=== PATIENT | female | born 1960 | race Caucasian/White ===

== ENCOUNTER 2018-07-13 21:05 | Emergency (ER) | payer BC ==
[2018-07-13] MEDS ORDERED: diphenhydrAMINE 50 MG Cap PO ONE (22:07)
[2018-07-13] MEDS ORDERED: methylPREDNISolone Sodium Succinate 125 MG/2 ML SDV IM ONE (22:07)
--- NOTE | 2018-07-13 22:08 | EDM.PDOC ---
ED HPI GENERAL MEDICAL PROBLEM - General Chief Complaint: Allergic Reaction Stated Complaint: PT HAS ALLERGIC REACTION Time Seen by Provider: 07/13/18 22:01 - History of Present Illness INITIAL COMMENTS - FREE TEXT/NARRATIVE: HISTORY AND PHYSICAL: History of present illness: The patient is a 58-year-old female who has a provider back in [place] but has relocated here and has not connected with a provider and has a history of hypertension and presents with 4 hours of having her lips feel tingly and over the last hour or so her lower lip started to swell. She has no tongue swelling or difficulty swallowing but says that she feels a little puffy in her neck and a tingly in her throat that started this morning. She has no chest pain or shortness of breath no coughing vomiting or diarrhea. The patient has used lisinopril for many years and has never had issues. Her to coming here such as [id number] Benadryl Claritin or Natalie. Review of systems: As per history of present illness and below otherwise all systems reviewed and negative. Past medical history: As per history of present illness and as reviewed below otherwise noncontributory. Surgical history: As per history of present illness and as reviewed below otherwise noncontributory. Social history: No reported history of drug or alcohol abuse. Family history: As per history of present illness and as reviewed below otherwise noncontributory. Physical exam: General: Well-developed well-nourished female who is nontoxic and vital signs are noted by me. Her elevated blood pressure has been discussed with the patient please see below. She is speaking clearly and easily without hoarse or muffled voice and not breathless HEENT: Atraumatic, normocephalic, pupils reactive, negative for conjunctival pallor or scleral icterus, mucous membranes moist, throat clear, neck supple, nontender, trachea midline. Some slight swelling of her lower lip that her tongue and oropharynx are within normal limits as is her uvula soft palate and posterior oropharynx. The upper lip is within normal limits and her face is not swollen or puffy. Lungs: Clear to auscultation, breath sounds equal bilaterally, chest nontender. No wheezing stridor or work of breathing Heart: S1S2, regular rate and rhythm no overt murmurs Abdomen: Soft, nondistended, nontender. NABS Pelvis: Deferred Genitourinary: Deferred. Rectal: Deferred. Extremities: Atraumatic, negative for cords or calf pain. Neurovascular unremarkable. Neuro: Awake, alert, oriented. Cranial nerves II through XII unremarkable. Cerebellum unremarkable. Motor and sensory unremarkable throughout. Exam nonfocal. Skin: The patient has an overall flushed appearance which she said is not new or different for her but she has no skin rashes lesions or urticaria Diagnostics: [] Therapeutics: Benadryl Solu-Medrol I discussed the patient's elevated blood pressure with the patient and she says that when she comes into the ER she does feel more distressed and she also feels stressed about what is going on with her. She does not want me to address that and wants to just take her regular medications and follow-up in the clinic. Impression: Mild angioedema secondary to lisinopril Definitive disposition and diagnosis as appropriate pending reevaluation and review of above. - Related Data Allergies Allergy/AdvReac Type Severity Reaction Status Date / Time latex Allergy Hives Verified 07/13/18 22:08 phenylpropanolamine Allergy Other Verified 07/13/18 22:08 ED ROS ALLERGIC REACTION - Review of Systems Review Of Systems: ROS reveals no pertinent complaints other than HPI. ED EXAM GENERAL NO PERIP PULSE - Physical Exam Exam: See Below (See dictation) Course - Vital Signs Last Recorded V/S: Last Vital Signs Temp 36.8 C 07/13/18 21:58 Pulse 59 L 07/13/18 21:58 Resp BP 225/111 H 07/13/18 21:58 Pulse Ox 98 07/13/18 21:58 - Orders/Labs/Meds Meds: Medications Discontinued Medications Generic Name Dose Route Start Last Admin Trade Name Freq PRN Reason Stop Dose Admin Diphenhydramine HCl 50 mg 07/13/18 22:07 Benadryl PO 07/13/18 22:08 ONETIME ONE Methylprednisolone Sodium Succinate 125 mg 07/13/18 22:07 Solu-Medrol IM 07/13/18 22:08 ONETIME ONE Departure - Departure Time of Disposition: 22:12 Disposition: Home, Self-Care 01 Condition: Good Clinical Impression: Angioedema due to angiotensin converting enzyme inhibitor (IVORY-I) Hypertension Qualifiers: Hypertension type: unspecified secondary hypertension Qualified Code(s): I15.9 - Secondary hypertension, unspecified; I15 - Secondary hypertension - Discharge Information Referrals: PCP,None [Primary Care Provider] - Additional Instructions: The following information is given to patients seen in the emergency department who are being discharged to home. This information is to outline your options for follow-up care. We provide all patients seen in our emergency department with a follow-up referral. The need for follow-up, as well as the timing and circumstances, are variable depending upon the specifics of your emergency department visit. If you don't have a primary care physician on staff, we will provide you with a referral. We always advise you to contact your personal physician following an emergency department visit to inform them of the circumstance of the visit and for follow-up with them and/or the need for any referrals to a consulting specialist. The emergency department will also refer you to a specialist when appropriate. This referral assures that you have the opportunity for followup care with a specialist. All of these measure are taken in an effort to provide you with optimal care, which includes your followup. Under all circumstances we always encourage you to contact your private physician who remains a resource for coordinating your care. When calling for followup care, please make the office aware that this follow-up is from your recent emergency room visit. If for any reason you are refused follow-up, please contact the emergency department at and ask to speak to the emergency department charge nurse. [facility] Primary care- Internal Medicine and Family [address] [id number] Please contact our clinic in the morning and schedule a follow-up appointment for tonight events as well as adjustment of your medications and a replacement for the lisinopril that we have stopped tonight. Do not take the lisinopril anymore. Take [id number] Benadryl 50 mg every 6 hours for the next 24 hours and then as needed. Fill the prescription for the Medrol Dosepak you can given and stressed that tomorrow. Try to avoid extra salt and sodium rich products in her diet to help with your blood pressure. Return to ER as needed and as discussed
== END 2018-07-13 22:37 | disposition home or self-care (01) ==
LOC: MW.ED 21:05
DX: T78.3XXA Angioneurotic edema, initial encounter (principal); T46.4X5A Adverse effect of angiotensin-converting-enzyme inhibitors, initial encounter; I15.9 Secondary hypertension, unspecified; Z91.040 Latex allergy status; Z88.8 Allergy status to other drugs, medicaments and biological substances
CPT/HCPCS: 96372; 99283; A9270; J2930

== ENCOUNTER 2018-09-25 12:09 | Inpatient (IN) | payer BC ==
[2018-09-25] MEDS ORDERED: Ondansetron 4 MG/2 ML SDV IVPUSH PRN (12:34)
[2018-09-25] MEDS ORDERED: Promethazine 25 MG/ML SDV IM PRN (12:34)
[2018-09-25] MEDS ORDERED: Sodium Chloride 0.9% 1,000 ML IV ONE ×2 (12:40→13:59)
--- NOTE | 2018-09-25 13:59 | PCM.HP ---
H&P History of Present Illness - General Date of Service: 09/25/18 Admit Problem/Dx: Admission Diagnosis/Problem Admission Diagnosis/Problem Acute kidney injury - History of Present Illness Initial Comments - Free Text/Narative: 68 yo female who presents with one week history of diarrhea. She reports poor apatite and occasional nausea and vomiting. At [facility] she has been receiving IV fluids with lab monitoring for her diarrhea illness. She denies any fever or abdominal pain. Three days ago her Creatinine was noted to be 1. Today it was 4. - Related Data Allergies/Adverse Reactions: Allergies Allergy/AdvReac Type Severity Reaction Status Date / Time latex Allergy Hives Verified 07/13/18 22:08 phenylpropanolamine Allergy Other Verified 07/13/18 22:08 Home Medications: Home Meds Aspirin [Adult Aspirin] 81 mg PO DAILY 07/13/18 [History] Fenofibrate 160 mg PO DAILY 07/13/18 [History] Metoprolol Tartrate [Lopressor] 150 mg PO BID 07/13/18 [History] hydroCHLOROthiazide [Hydrochlorothiazide] 50 mg PO DAILY 07/13/18 [History] Cholecalciferol (Vitamin D3) [Vitamin D3] 2,000 unit PO DAILY 09/25/18 [History] Ciprofloxacin HCl [Cipro] 500 mg PO BID 09/25/18 [History] Potassium Chloride 20 meq PO BID 09/25/18 [History] amLODIPine Bes/Olmesartan Med [Amlodipine-Olmesartan 10-40 mg] 1 tab PO DAILY [History] Past Medical History Cardiovascular History: Reports: Hypertension Genitourinary History: Reports: Acute Renal Failure 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 Exam - Exam Exam: See Below - Vital Signs Vital Signs: Last Vital Signs Temp 36.6 C 09/25/18 12:10 Pulse 73 09/25/18 12:10 Resp 18 09/25/18 12:10 BP 109/71 09/25/18 12:10 Pulse Ox 96 09/25/18 12:10 Weight: 93.213 kg - Exam General: Alert, Oriented HEENT: Other (dry [place]) Neck: Supple Lungs: Clear to Auscultation, Normal Respiratory Effort Cardiovascular: Regular Rate, Regular Rhythm GI/Abdominal Exam: Soft, Non-Tender Extremities: Non-Tender, No Pedal Edema Skin: Warm, Dry, Intact Neurological: Cranial Nerves Intact - Patient Data Lab Results Last 24 hrs: Laboratory Results - last 24 hr 09/25/18 09/25/18 Range/Units 12:46 12:46 WBC 10.07 (4.0-11.0) K/uL RBC 5.20 (4.30-5.90) M/uL Hgb 15.9 (12.0-16.0) g/dL Hct 44.2 (36.0-46.0) % MCV 85.0 (80.0-98.0) fL MCH 30.6 (27.0-32.0) pg MCHC 36.0 (31.0-37.0) g/dL RDW Std Deviation 39.7 (28.0-62.0) fl RDW Coeff of John Paul 13 (11.0-15.0) % Plt Count 304 (150-400) K/uL MPV 12.00 (7.40-12.00) fL Neut % (Auto) 71.6 (48.0-80.0) % Lymph % (Auto) 19.5 (16.0-40.0) % [place] % (Auto) 8.3 (0.0-15.0) % Eos % (Auto) 0.5 (0.0-7.0) % Baso % (Auto) 0.1 (0.0-1.5) % Neut # (Auto) 7.2 H (1.4-5.7) K/uL Lymph # (Auto) 2.0 (0.6-2.4) K/uL Miller # (Auto) 0.8 (0.0-0.8) K/uL Eos # (Auto) 0.1 (0.0-0.7) K/uL Baso # (Auto) 0.0 (0.0-0.1) K/uL Nucleated RBC % 0.0 /100WBC Nucleated RBCs # 0 K/uL Sodium 139 (136-145) mmol/L Potassium 3.0 L (3.5-5.1) mmol/L Chloride 105 (98-107) mmol/L Carbon Dioxide 13.3 L (21.0-32.0) mmol/L BUN 70 H (7.0-18.0) mg/dL Creatinine 5.1 H (0.6-1.0) mg/dL Est Cr Clr Drug Dosing 9.63 mL/min Estimated GFR (MDRD) 8.7 ml/min Glucose 127 H (74-106) mg/dL Calcium 9.7 (8.5-10.1) mg/dL Total Bilirubin 0.6 (0.2-1.0) mg/dL AST 22 (15-37) IU/L ALT 67 H (14-63) IU/L Alkaline Phosphatase 60 (46-116) U/L Total Protein 8.3 H (6.4-8.2) g/dL Albumin 4.9 (3.4-5.0) g/dL Globulin 3.4 (2.6-4.0) g/dL Albumin/Globulin Ratio 1.4 (0.9-1.6) Result Diagrams: 09/25/18 12:46 09/25/18 12:46 Problem List Initiated/Reviewed/Updated: Yes Orders Last 24hrs: Active Orders 24 hr Category Date Time Status Patient Status [ADT] Routine ADT 09/25/18 12:34 Active Antiembolic Devices [RC] PER UNIT ROUTINE Care 09/25/18 12:36 Active Oxygen Therapy [RC] PRN Care 09/25/18 12:34 Active Up ad Elma [RC] ASDIRECTED Care 09/25/18 12:34 Active VTE/DVT Education [RC] PER UNIT ROUTINE Care 09/25/18 12:34 Active Vital Signs [RC] Q4H Care 09/25/18 12:34 Active Regular Diet [DIET] Diet 09/25/18 Breakfast Active Retroperitoneal Ltd [US] Routine Exams 09/25/18 12:39 Ordered CULTURE STOOL + CAMPY+SHIGATOX [RM] Routine Lab 09/25/18 12:38 Ordered CULTURE URINE [RM] Stat Lab 09/25/18 12:34 Ordered Clostridium Difficile [CDIFF TOX A+B] [OP] Routine Lab 09/25/18 12:38 Ordered UA W/MICROSCOPIC [URIN] Routine Lab 09/25/18 12:34 Ordered Ondansetron [Zofran] Med 09/25/18 12:34 Active 4 mg IVPUSH Q4H PRN Pantoprazole [ProTONIX IV] Med 09/25/18 21:00 Ordered 40 mg IV Q12HR Promethazine [Phenergan] Med 09/25/18 12:34 Active 25 mg IM Q6H PRN Sodium Chloride 0.9% [Normal Saline] 1,000 ml Med 09/25/18 12:45 Active IV ASDIRECTED Isolation [COMM] Stat Oth 09/25/18 12:38 Ordered Sequential Compression Device [OM.PC] Per Unit Routine Oth 09/25/18 12:35 Ordered Resuscitation Status Routine Resus Stat 09/25/18 12:34 Ordered Medication Orders Sodium Chloride (Normal Saline) 1,000 mls @ 150 mls/hr IV ASDIRECTED [place] Ondansetron HCl (Zofran) 4 mg IVPUSH Q4H PRN PRN Reason: Nausea Pantoprazole Sodium (Protonix Iv) 40 mg IV Q12HR [facility] Promethazine HCl (Phenergan) 25 mg IM Q6H PRN PRN Reason: Nausea Assessment/Plan Comment:: 58 yo female admitted for acute kidney failure due to dehydration and diarrhea illness. We will treat with IV fluids and send stool for studies. We will further evaluate with CT of the abdomen and pelvis.
[2018-09-25] MEDS: Sodium Chloride 0.9% 1,000 ML IV SCH ×2 (16:12→22:49)
[2018-09-25] MEDS: Pantoprazole 40 MG Vial IV SCH (22:10)
[2018-09-26] MEDS: Sodium Chloride 0.9% 1,000 ML IV SCH ×3 (05:35→18:18)
[2018-09-26] MEDS: Pantoprazole 40 MG in Sodium Chloride 0.9% 10 ML IV SCH ×2 (11:15→22:29)
--- NOTE | 2018-09-26 14:11 | PCM.PN ---
- General Info Date of Service: 09/26/18 - Review of Systems Systems Review Comment:: feeling better, diarrhea improving - Patient Data Vitals - Most Recent: Last Vital Signs Temp 37.3 C 09/26/18 12:00 Pulse 71 09/26/18 12:00 Resp 20 09/26/18 12:00 BP 121/60 09/26/18 12:00 Pulse Ox 99 09/26/18 12:00 Weight - Most Recent: 93.213 kg I&O - Last 24 Hours: Intake & Output 09/25/18 09/26/18 09/26/18 22:59 06:59 14:59 Intake Total 2200 1770 1010 Output Total 600 850 Balance 5965 735 2901 Lab Results Last 24 Hours: Laboratory Results - last 24 hr 09/25/18 09/26/18 09/26/18 Range/Units 18:40 05:59 05:59 WBC 5.16 (4.0-11.0) K/uL RBC 4.25 L (4.30-5.90) M/uL Hgb 12.5 (12.0-16.0) g/dL Hct 36.4 (36.0-46.0) % MCV 85.6 (80.0-98.0) fL MCH 29.4 (27.0-32.0) pg MCHC 34.3 (31.0-37.0) g/dL RDW Std Deviation 40.6 (28.0-62.0) fl RDW Coeff of John Paul 13 (11.0-15.0) % Plt Count 214 (150-400) K/uL MPV 11.90 (7.40-12.00) fL Neut % (Auto) 55.1 (48.0-80.0) % Lymph % (Auto) 34.1 (16.0-40.0) % [place] % (Auto) 8.7 (0.0-15.0) % Eos % (Auto) 1.7 (0.0-7.0) % Baso % (Auto) 0.4 (0.0-1.5) % Neut # (Auto) 2.8 (1.4-5.7) K/uL Lymph # (Auto) 1.8 (0.6-2.4) K/uL [place] # (Auto) 0.5 (0.0-0.8) K/uL Eos # (Auto) 0.1 (0.0-0.7) K/uL Baso # (Auto) 0.0 (0.0-0.1) K/uL Nucleated RBC % 0.0 /100WBC Nucleated RBCs # 0 K/uL Sodium 145 (136-145) mmol/L Potassium 3.0 L (3.5-5.1) mmol/L Chloride 114 H (98-107) mmol/L Carbon Dioxide 15.3 L (21.0-32.0) mmol/L BUN 66 H (7.0-18.0) mg/dL Creatinine 3.4 H (0.6-1.0) mg/dL Est Cr Clr Drug Dosing 14.44 mL/min Estimated GFR (MDRD) 13.9 ml/min Glucose 103 (74-106) mg/dL Calcium 8.6 (8.5-10.1) mg/dL Urine Color DARK YELLOW Urine Appearance SLT CLOUDY Urine pH 5.0 (5.0-8.0) Ur Specific Munger >= 1.030 (1.001-1.035) Urine Protein NEGATIVE (NEGATIVE) mg/dL Urine Glucose (UA) NEGATIVE (NEGATIVE) mg/dL Urine Ketones NEGATIVE (NEGATIVE) mg/dL Urine Occult Blood NEGATIVE (NEGATIVE) Urine Nitrite NEGATIVE (NEGATIVE) Urine Bilirubin NEGATIVE (NEGATIVE) Urine Urobilinogen 0.2 (<2.0) EU/dL Ur Leukocyte Esterase NEGATIVE (NEGATIVE) Urine RBC 0-2 (0-2/HPF) Urine WBC 2-4 (0-5/HPF) Ur Epithelial Cells MODERATE (NONE-FEW) Calcium Oxalate Crystal FEW (NEGATIVE) Urine Bacteria FEW (NEGATIVE) Quirino Results Last 24 Hours: Microbiology 09/25/18 14:32 Campylobacter Antigen Assay - Final Stool / Feces NEGATIVE CAMPYLOBACTER AG Shiga Toxin I - Final Shiga Toxin II - Final No Growth 09/25/18 14:32 Clostridium difficile Toxin A & B - Final Stool / Feces Negative for C.Diff Toxin/AG Med Orders - Current: Current Medications Sodium Chloride (Normal Saline) 1,000 mls @ 150 mls/hr IV ASDIRECTED [place] Last Admin: 09/26/18 11:43 Dose: 150 mls/hr Pantoprazole Sodium 40 mg/ (Sodium Chloride) 10 mls @ 200 mls/hr IV Q12H [facility] Last Admin: 09/26/18 11:15 Dose: 200 mls/hr Ondansetron HCl (Zofran) 4 mg IVPUSH Q4H PRN PRN Reason: Nausea Promethazine HCl (Phenergan) 25 mg IM Q6H PRN PRN Reason: Nausea Discontinued Medications Sodium Chloride (Normal Saline) 1,000 mls @ 999 mls/hr IV .Bolus ONE Stop: 09/25/18 13:40 Last Admin: 09/25/18 13:53 Dose: 999 mls/hr Sodium Chloride (Normal Saline) 1,000 mls @ 999 mls/hr IV .Bolus ONE Stop: 09/25/18 14:59 Last Admin: 09/25/18 14:44 Dose: 999 mls/hr Pantoprazole Sodium (Protonix Iv) 40 mg IV Q12HR [facility] Last Admin: 09/25/18 22:10 Dose: 40 mg - Exam General: Alert, Oriented Neck: Supple Lungs: Clear to Auscultation, Normal Respiratory Effort Cardiovascular: Regular Rate, Regular Rhythm Extremities: Non-Tender, No Pedal Edema Skin: Warm, Dry, Intact Neurological: No New Focal Deficit - Problem List Review Problem List Initiated/Reviewed/Updated: Yes - My Orders Last 24 Hours: My Active Orders 09/25/18 13:56 Abdomen Pelvis wo Cont [CT] Routine 09/25/18 14:32 CULTURE STOOL + CAMPY+SHIGATOX [RM] Routine 09/25/18 18:40 CULTURE URINE [] Stat 09/26/18 11:00 Pantoprazole [ProTONIX IV] 40 mg Sodium Chloride 0.9% [Normal Saline] 10 ml IV Q12H 09/27/18 05:11 BASIC METABOLIC PANEL,BMP [CHEM] AM CBC WITH AUTO DIFF [HEME] AM - Plan Plan:: 58 yo female admitted for acute kidney failure due to dehydration and diarrhea illness. Creatinine has improved to 3.4 We will continue IV fluids. Stool studies have been negative so far. CT scan report is still pending.
[2018-09-26] MEDS: Pantoprazole 40 MG Vial IV SCH (14:41)
--- NOTE | 2018-09-26 17:44 | CT ---
INDICATION: Diarrhea. Acute renal failure. TECHNIQUE: CT of the abdomen and pelvis performed without IV or oral contrast. FINDINGS: Moderate osteopenia. Mild to moderate vascular calcifications. Moderate fatty infiltration of the liver with focal fatty sparing. Mild nodular benign thickening of both adrenal glands. Benign small calcified density in the pelvic mesentery. Mildly prominent portacaval lymph node can normally be mildly prominent and is likely not significant. Contents of the colon are air and fluid without formed stool which is consistent with the patient`s known diarrhea. No wall thickening involving the colon to suggest colitis. Findings could be related to gastroenteritis. Fat containing 3.3 cm lower anterior abdominal wall hernia extending to the periumbilical region. Reactive lymph nodes in the abdominal mesentery. Remainder negative. IMPRESSION: 1. Contents of the colon are fluid and air without formed stool. Findings consistent with the patient`s known diarrhea. No CT evidence for colitis. Findings could be related to gastroenteritis. 2. Not mentioned above are changes of cholecystectomy with mild biliary prominence especially common bile duct. 3. Fat containing ventral abdominal wall hernia extending to the periumbilical region measures 3.3 cm. Other findings as above. Please note that all CT scans at this facility use dose modulation, iterative reconstruction, and/or weight-based dosing when appropriate to reduce radiation dose to as low as reasonably achievable. Dictated by Jamal Grant MD @ Sep 26 2018 4:03PM (Electronically Signed)
[2018-09-27] MEDS: Sodium Chloride 0.9% 1,000 ML IV SCH (07:59)
[2018-09-27] MEDS ORDERED: Sodium Chloride 0.9% with KCl 1,000 ML IV SCH (09:15)
[2018-09-27] MEDS ORDERED: Potassium Chloride 20 MEQ Tab.ER PO ONE (09:40)
--- NOTE | 2018-09-27 11:18 | PCM.PN ---
- General Info Date of Service: 09/27/18 - Review of Systems Systems Review Comment:: diarrhea is improving - Patient Data Vitals - Most Recent: Last Vital Signs Temp 37.3 C 09/27/18 08:00 Pulse 72 09/27/18 08:00 Resp 19 09/27/18 08:00 BP 132/80 09/27/18 08:00 Pulse Ox 98 09/27/18 08:00 Weight - Most Recent: 93.213 kg I&O - Last 24 Hours: Intake & Output 09/26/18 09/27/18 09/27/18 22:59 06:59 14:59 Intake Total 1170 400 480 Output Total 1200 1200 Balance -30 -800 480 Lab Results Last 24 Hours: Laboratory Results - last 24 hr 09/27/18 09/27/18 09/27/18 Range/Units 06:14 06:14 06:57 WBC 5.16 (4.0-11.0) K/uL RBC 4.01 L (4.30-5.90) M/uL Hgb 12.1 (12.0-16.0) g/dL Hct 33.9 L (36.0-46.0) % MCV 84.5 (80.0-98.0) fL MCH 30.2 (27.0-32.0) pg MCHC 35.7 (31.0-37.0) g/dL RDW Std Deviation 40.1 (28.0-62.0) fl RDW Coeff of John Paul 13 (11.0-15.0) % Plt Count 208 (150-400) K/uL MPV 11.50 (7.40-12.00) fL Neut % (Auto) 56.0 (48.0-80.0) % Lymph % (Auto) 36.4 (16.0-40.0) % [place] % (Auto) 5.8 (0.0-15.0) % Eos % (Auto) 1.6 (0.0-7.0) % Baso % (Auto) 0.2 (0.0-1.5) % Neut # (Auto) 2.9 (1.4-5.7) K/uL Lymph # (Auto) 1.9 (0.6-2.4) K/uL [place] # (Auto) 0.3 (0.0-0.8) K/uL Eos # (Auto) 0.1 (0.0-0.7) K/uL Baso # (Auto) 0.0 (0.0-0.1) K/uL Nucleated RBC % 0.0 /100WBC Nucleated RBCs # 0 K/uL Sodium 147 H (136-145) mmol/L Potassium 2.8 L (3.5-5.1) mmol/L Chloride 117 H (98-107) mmol/L Carbon Dioxide 15.7 L (21.0-32.0) mmol/L BUN 46 H (7.0-18.0) mg/dL Creatinine 1.7 H (0.6-1.0) mg/dL Est Cr Clr Drug Dosing 28.88 mL/min Estimated GFR (MDRD) 31.0 ml/min Glucose 103 (74-106) mg/dL Calcium 8.5 (8.5-10.1) mg/dL Magnesium 1.8 (1.8-2.4) mg/dL Quirino Results Last 24 Hours: Microbiology 09/25/18 14:32 Stool Culture - Final Stool / Feces NO SALMONELLA, SHIGELLA,OR E.COLI O157 ISOLATED Campylobacter Antigen Assay - Final NEGATIVE CAMPYLOBACTER AG Shiga Toxin I - Final Shiga Toxin II - Final No Growth 09/25/18 18:40 Urine Culture - Final Urine, Bladder No Growth Med Orders - Current: Current Medications Pantoprazole Sodium 40 mg/ (Sodium Chloride) 10 mls @ 200 mls/hr IV Q12H [facility] Last Admin: 09/26/18 22:29 Dose: 200 mls/hr Potassium Chloride/Sodium Chloride (Normal Saline With 40 Meq Kcl) 1,000 mls @ 150 mls/hr IV ASDIRECTED [facility] Stop: 09/27/18 15:54 Last Admin: 09/27/18 10:16 Dose: 150 mls/hr Ondansetron HCl (Zofran) 4 mg IVPUSH Q4H PRN PRN Reason: Nausea Promethazine HCl (Phenergan) 25 mg IM Q6H PRN PRN Reason: Nausea Discontinued Medications Sodium Chloride (Normal Saline) 1,000 mls @ 150 mls/hr IV ASDIRECTED [facility] Last Admin: 09/27/18 07:59 Dose: 150 mls/hr Sodium Chloride (Normal Saline) 1,000 mls @ 999 mls/hr IV .Bolus ONE Stop: 09/25/18 13:40 Last Admin: 09/25/18 13:53 Dose: 999 mls/hr Sodium Chloride (Normal Saline) 1,000 mls @ 999 mls/hr IV .Bolus ONE Stop: 09/25/18 14:59 Last Admin: 09/25/18 14:44 Dose: 999 mls/hr Sodium Chloride (Normal Saline) 1,000 mls @ 125 mls/hr IV ASDIRECTED [facility] Pantoprazole Sodium (Protonix Iv) 40 mg IV Q12HR [facility] Last Admin: 09/26/18 14:41 Dose: Not Given Potassium Chloride (Klor-Con M20) 40 meq PO ONETIME ONE Stop: 09/27/18 09:41 Last Admin: 09/27/18 10:17 Dose: 40 meq - Exam General: Alert, Oriented Neck: Supple Lungs: Clear to Auscultation, Normal Respiratory Effort Cardiovascular: Regular Rate, Regular Rhythm GI/Abdominal Exam: Normal Bowel Sounds, Soft, Non-Tender Extremities: Non-Tender, Slow Capillary Refill - Problem List Review Problem List Initiated/Reviewed/Updated: Yes - My Orders Last 24 Hours: My Active Orders 09/26/18 11:00 Pantoprazole [ProTONIX IV] 40 mg Sodium Chloride 0.9% [Normal Saline] 10 ml IV Q12H 09/27/18 09:15 Sodium Chloride 0.9% with KCl [Normal Saline with 40 mEq KCl] 1,000 ml IV ASDIRECTED - Plan Plan:: 58 yo female admitted for acute kidney failure due to dehydration and diarrhea illness. Creatinine has improved to 1.7. Patient's potassium is 2.8. Will give potassium replacement for hypokalemia. I anticipate discharge home tomorrow.
[2018-09-27] MEDS: Pantoprazole 40 MG in Sodium Chloride 0.9% 10 ML IV SCH ×2 (12:12→22:35)
[2018-09-27] MEDS ORDERED: Sodium Chloride 0.9% 1,000 ML IV SCH (16:45)
[2018-09-28] MEDS ORDERED: Potassium Chloride 20 MEQ Tab.ER PO ONE (08:03)
--- NOTE | 2018-09-28 10:25 | PCM.DCSUM1 ---
Discharge Summary - Discharge Data Discharge Date: 09/28/18 Discharge Disposition: Home, Self-Care 01 Condition: Good - Patient Summary/Data Hospital Course: 58 yo female who was admitted with acute kidney failure from dehydration with gastroenteritis. She presented with one week history of diarrhea, nausea and vomting. Prior to admission she was treated as an outpatient At [facility] with IV fluid boluses. with lab monitoring for her diarrhea illness. Three days prior to admission her creatinine was noted to be 1. The day of admission her creatinine was 5.1. She was treated with IV fluids. Stool studies were negative, CT scan of abdomen/pelvis did not show any hydronephrosis or colitis. Her creatinine improved to 1.3 on day of discharge. Her antihypertensive medications were held during her admission and her blood pressures were normal to slightly low so she was told to continue to hold her antihypertensive medications and take her blood pressure daily. She is to follow up with Tomás Smith at [facility]. - Discharge Plan Home Medications: Home Meds Aspirin [Adult Aspirin] 81 mg PO DAILY 07/13/18 [History] Fenofibrate 160 mg PO DAILY 07/13/18 [History] Potassium Chloride 20 meq PO BID 09/25/18 [History] Patient Handouts: Viral Gastroenteritis, Adult, [id number], Dehydration, Adult, Wcys-[id number] Referrals: [facility] [Outside] Albania Smith NP [Ordering Only Provider] - 10/01/18 10:45 am - Discharge Summary/Plan Comment DC Time >30 min.: No - Patient Data Vitals - Most Recent: Last Vital Signs Temp 37.3 C 09/28/18 08:00 Pulse 83 09/28/18 08:00 Resp 16 09/28/18 08:00 BP 130/81 09/28/18 08:00 Pulse Ox 99 09/28/18 08:00 Weight - Most Recent: 93.213 kg I&O - Last 24 hours: Intake & Output 09/27/18 09/28/18 09/28/18 22:59 06:59 14:59 Intake Total 2350 880 240 Output Total 1180 1500 Balance 1170 -620 240 Lab Results - Last 24 hrs: Laboratory Results - last 24 hr 09/28/18 09/28/18 Range/Units 05:36 05:36 WBC 4.99 (4.0-11.0) K/uL RBC 3.76 L (4.30-5.90) M/uL Hgb 11.2 L (12.0-16.0) g/dL Hct 31.8 L (36.0-46.0) % MCV 84.6 (80.0-98.0) fL MCH 29.8 (27.0-32.0) pg MCHC 35.2 (31.0-37.0) g/dL RDW Std Deviation 40.0 (28.0-62.0) fl RDW Coeff of John Paul 13 (11.0-15.0) % Plt Count 191 (150-400) K/uL MPV 11.90 (7.40-12.00) fL Neut % (Auto) 52.9 (48.0-80.0) % Lymph % (Auto) 36.1 (16.0-40.0) % [place] % (Auto) 8.6 (0.0-15.0) % Eos % (Auto) 2.2 (0.0-7.0) % Baso % (Auto) 0.2 (0.0-1.5) % Neut # (Auto) 2.6 (1.4-5.7) K/uL Lymph # (Auto) 1.8 (0.6-2.4) K/uL [place] # (Auto) 0.4 (0.0-0.8) K/uL Eos # (Auto) 0.1 (0.0-0.7) K/uL Baso # (Auto) 0.0 (0.0-0.1) K/uL Nucleated RBC % 0.0 /100WBC Nucleated RBCs # 0 K/uL Sodium 147 H (136-145) mmol/L Potassium 3.0 L (3.5-5.1) mmol/L Chloride 115 H (98-107) mmol/L Carbon Dioxide 20.7 L (21.0-32.0) mmol/L BUN 27 H (7.0-18.0) mg/dL Creatinine 1.3 H (0.6-1.0) mg/dL Est Cr Clr Drug Dosing 37.76 mL/min Estimated GFR (MDRD) 42.2 ml/min Glucose 101 (74-106) mg/dL Calcium 8.6 (8.5-10.1) mg/dL ANICETO Results - Last 24 hrs: Microbiology 09/25/18 14:32 Stool Culture - Final Stool / Feces NO SALMONELLA, SHIGELLA,OR E.COLI O157 ISOLATED Campylobacter Antigen Assay - Final NEGATIVE CAMPYLOBACTER AG Shiga Toxin I - Final Shiga Toxin II - Final No Growth 09/25/18 18:40 Urine Culture - Final Urine, Bladder No Growth Med Orders - Current: Current Medications Pantoprazole Sodium 40 mg/ (Sodium Chloride) 10 mls @ 200 mls/hr IV Q12H [facility] Last Admin: 09/27/18 22:35 Dose: 200 mls/hr Ondansetron HCl (Zofran) 4 mg IVPUSH Q4H PRN PRN Reason: Nausea Promethazine HCl (Phenergan) 25 mg IM Q6H PRN PRN Reason: Nausea Discontinued Medications Sodium Chloride (Normal Saline) 1,000 mls @ 150 mls/hr IV ASDIRECTED [facility] Last Admin: 09/27/18 07:59 Dose: 150 mls/hr Sodium Chloride (Normal Saline) 1,000 mls @ 999 mls/hr IV .Bolus ONE Stop: 09/25/18 13:40 Last Admin: 09/25/18 13:53 Dose: 999 mls/hr Sodium Chloride (Normal Saline) 1,000 mls @ 999 mls/hr IV .Bolus ONE Stop: 09/25/18 14:59 Last Admin: 09/25/18 14:44 Dose: 999 mls/hr Potassium Chloride/Sodium Chloride (Normal Saline With 40 Meq Kcl) 1,000 mls @ 150 mls/hr IV ASDIRECTED [facility] Stop: 09/27/18 15:54 Last Admin: 09/27/18 10:16 Dose: 150 mls/hr Sodium Chloride (Normal Saline) 1,000 mls @ 125 mls/hr IV ASDIRECTED [facility] Pantoprazole Sodium (Protonix Iv) 40 mg IV Q12HR [facility] Last Admin: 09/26/18 14:41 Dose: Not Given Potassium Chloride (Klor-Con M20) 40 meq PO ONETIME ONE Stop: 09/27/18 09:41 Last Admin: 09/27/18 10:17 Dose: 40 meq Potassium Chloride (Klor-Con M20) 40 meq PO ONETIME ONE Stop: 09/28/18 08:04 Last Admin: 09/28/18 08:49 Dose: 40 meq
== END 2018-09-28 11:00 | disposition home or self-care (01) | DRG 469 ==
LOC: MW.MS 12:09
PROVIDERS: ADMIT Internal Medicine; ATTEND Internal Medicine
DX: N17.9 Acute kidney failure, unspecified (principal); E86.0 Dehydration; K52.9 Noninfective gastroenteritis and colitis, unspecified; I10 Essential (primary) hypertension; E87.6 Hypokalemia; Z90.49 Acquired absence of other specified parts of digestive tract; Z88.8 Allergy status to other drugs, medicaments and biological substances; Z91.040 Latex allergy status; Z79.82 Long term (current) use of aspirin; Z79.899 Other long term (current) drug therapy
CPT/HCPCS: 36415; 74176; 74176-26; 80048; 80053; 81001; 83735; 85025; 87046; 87086; 87324; 87899; A9270-GY; C9113; J3480; J7040; J7050